=== PATIENT | female | born 1930 | race Hispanic/Latino ===

== ENCOUNTER 2017-07-20 05:55 | Day surgery (SDC) | payer MEDICARE ==
[2017-07-16 09:49] LABS: EOSINOPHILS % (AUTO) 3.3 % (0.0-8.0); HEMATOCRIT 38.3 % (36-48); LYMPHOCYTES % (AUTO) 21.8 % (21.0-51.0); MEAN CORPUSCULAR HEMOGLOBIN 29.4 pg (27.0-33.0); MEAN CORPUSCULAR HGB CONC 34.1 g/dL (32.0-36.0); MEAN CORPUSCULAR VOLUME 86.3 fL (79-99); MONOCYTES % (AUTO) 7.7 % (3.0-13.0); NEUTROPHILS % (AUTO) 66.2 % (40.0-77.0); NUCLEATED RED BLOOD CELLS 0.1 % (0.0-0.19); PLATELET COUNT (AUTO) 269 K/uL (130-400); RED BLOOD CELL COUNT(AUTO) 4.44 MIL/uL (4.00-5.50); RED CELL DISTRIBUTION WIDTH 14.6 % (11.0-15.5); WHITE BLOOD COUNT (AUTO) 7.7 K/uL (4.8-10.8)
[2017-07-16 10:05] LABS: CREATININE 1.5 mg/dL (0.5-1.5); POTASSIUM 4.6 mmol/L (3.5-5.1)
[2017-07-16 10:13] LABS: PARTIAL THROMBOPLASTIN TIME 23.2 SEC (26.3-35.5)
[2017-07-16 10:17] LABS: INR 1.01 (0.85-1.15); PROTHROMBIN TIME 10.4 SEC (9.6-11.6)
[2017-07-16 10:35] VITALS: BP 176/81
[2017-07-20] VITALS (10 sets, daily range): BP systolic 127–167; BP diastolic 50–58
[~2017-07-20] VITALS: Ht 146.1 cm; Wt 62.0 kg
[~2017-07-20 05:55] MED LIST: BENZ-51 PO; CHOL500050 PO; CLON1TAB5 PO; DILT240C94 PO; FENO145T37 PO; MECL12.585 PO; MELO-108 PO; OMEP20TA2 PO; SIMV5TAB6 PO; WARF2TAB57 PO
[2017-07-20] MEDS ORDERED: CEFAZOLIN SODIUM 1 GM VIAL IVP SCH (06:00)
[2017-07-20] MEDS ORDERED: SODIUM CHLORIDE 0.9% 1000ML 1,000 ML IV SCH (06:00)
[2017-07-20] MEDS ORDERED: BUPIVACAINE/PF 0.25% 30ML VIAL IJ ONE (08:06)
[2017-07-20] MEDS ORDERED: LIDOCAINE HCL 1% MDV 50ML VIAL ONE (08:06)
[2017-07-20] MEDS ORDERED: CEFAZOLIN SODIUM 1 GM VIAL ONE (08:06)
[2017-07-20] MEDS ORDERED: CEPH250 PO (09:38)
[2017-07-20] MEDS ORDERED: ACETAMINOPHEN 325 MG TAB PO PRN (09:45)
[2017-07-21] MEDS ORDERED: CEFAZOLIN SODIUM 1 GM VIAL IVP SCH (09:00)
[2017-07-21] MEDS ORDERED: CEFAZOLIN 2GM / 50 ML 50 ML IV SCH (09:00)
== END 2017-07-20 14:20 | disposition home or self-care (01) ==
LOC: DAH 05:55
PROVIDERS: ATTEND Internal Medicine Cardiovascular Disease
DX: I49.5 Sick sinus syndrome (principal); I47.1 Supraventricular tachycardia; I48.91 Unspecified atrial fibrillation; E11.21 Type 2 diabetes mellitus with diabetic nephropathy; E11.22 Type 2 diabetes mellitus with diabetic chronic kidney disease; N18.2 Chronic kidney disease, stage 2 (mild); E55.9 Vitamin D deficiency, unspecified; Z87.891 Personal history of nicotine dependence; Z79.899 Other long term (current) drug therapy; Z79.84 Long term (current) use of oral hypoglycemic drugs; Z95.0 Presence of cardiac pacemaker
CPT/HCPCS: 33228; 36415; 80048; 82948 ×2; 85025; 85610; 85730; 93005; A4218; A4606; C1785; J0690 ×2; J3490 ×2; J7030

== ENCOUNTER → 2022-04-18 | Outpatient (CLI) | payer MEDICARE ==
[~2022-04-18] MED LIST changes: -BENZ-51 PO; +BENZ-70 PO; +CEPH250 PO; +CLON1TAB12 PO; -CLON1TAB5 PO; +FENO145T26 PO; -FENO145T37 PO; +MECL-226 PO; -MECL12.585 PO; +SIMV5TAB58 PO; -SIMV5TAB6 PO
== END | disposition home or self-care (01) ==
LOC: LAB 10:40
PROVIDERS: ATTEND Internal Medicine Cardiovascular Disease
DX: I48.0 Paroxysmal atrial fibrillation (principal); I35.0 Nonrheumatic aortic (valve) stenosis; R00.2 Palpitations
CPT/HCPCS: 36415; 83883; 84156; 84165

== ENCOUNTER → 2022-05-09 | Outpatient (CLI) | payer MEDICARE | END | disposition home or self-care (01) | LOC: RAH 13:01 | PROVIDERS: ATTEND Internal Medicine Cardiovascular Disease | DX: I48.0 Paroxysmal atrial fibrillation (principal); I35.0 Nonrheumatic aortic (valve) stenosis; E85.9 Amyloidosis, unspecified | CPT/HCPCS: 78803; A9538 ==